=== PATIENT | female | born 1980 | race Caucasian/White ===

== ENCOUNTER 2024-05-05 13:52 | Emergency (ER) | payer MEDICAID ==
[~2024-05-05] VITALS: Ht 154.9 cm; Wt 74.0 kg
[2024-05-05 13:53] VITALS: O2SAT 100
[2024-05-05 14:19] VITALS: BP 126/71; PULSE 94; RESP 18; TEMP 98.8; O2SAT 99
[2024-05-05 14:50] LABS: CLARITY URINE CLEAR (CLEAR); COLOR URINE YELLOW (YELLOW); GLUCOSE URINE NEGATIVE (NEGATIVE); KETONES URINE NEGATIVE (NEGATIVE); LEUKOCYTE ESTERASE URINE 2+ (NEGATIVE); NITRITE URINE NEGATIVE (NEGATIVE); OCCULT BLOOD URINE 1+ (NEGATIVE); PH URINE 7.5 (4.5-8.0); PROTEIN URINE NEGATIVE (NEGATIVE); SPECIFIC GRAVITY URINE 1.009 (1.005-1.030); UROBILINOGEN URINE 0.2 E.U./dL (0.2-1.0)
[2024-05-05 15:08] LABS: BACTERIA URINE 1+; SQUAMOUS EPITHELIAL CELL URINE 2+ /lpf (RARE/1+)
[2024-05-05] MEDS ORDERED: NITR-87 MT (22:42)
== END 2024-05-05 22:55 | disposition home or self-care (01) ==
LOC: ER 13:52
DX: R51.9 Headache, unspecified (principal); N39.0 Urinary tract infection, site not specified; E78.00 Pure hypercholesterolemia, unspecified
CPT/HCPCS: 71045; 81003; 93005; 99285